=== PATIENT | female | born 1995 | race Caucasian/White ===

== ENCOUNTER → 2019-06-01 10:36 | Outpatient (CLI) | payer OTHER, SELFPAY ==
--- NOTE | ~2019-06-01 | CT_ITS ---
EXAMINATION: CT cervical spine wo con DATE: 06/01/2019 11:09 INDICATION: Neck pain. TECHNIQUE: Computed tomography (CT) of the cervical spine was performed without intravenous contrast. Automated exposure control and iterative reconstruction technique were employed. The dose-length pro duct was 267.93 mGy-cm. COMPARISON: Cervical spine CT 01/06/2016 FINDINGS: There is kyphosis of cervical spine. Vertebral body heights are normal. There is mildly dec reased disc height at C6-C7. The following disc levels are specifically discussed: C2-C3: There is no uncovertebral joint osteoarthritis. There is mild bilateral facet joint osteoarthr itis. There is no neural foraminal stenosis. There is no central canal stenosis. C3-C4: There is no uncovertebral joint osteoarthritis. There is mild bilateral facet joint osteoarthr itis. There is no neural foraminal stenosis. There is no central canal stenosis. C4-C5: There is no uncovertebral joint osteoarthritis. There is mild left facet joint osteoarthritis. There is no neural foraminal stenosis. There is no central canal stenosis. C5-C6: There is moderate right and mild left uncovertebral joint osteoarthritis. There is no facet wyatt int osteoarthritis. There is no neural foraminal stenosis. There is no central canal stenosis. C6-C7: There is no uncovertebral joint osteoarthritis. There is no facet joint osteoarthritis. There is no neural foraminal stenosis. There is no central canal stenosis. C7-T1: There is no uncovertebral joint osteoarthritis. There is moderate bilateral facet joint osteoa rthritis. There is no neural foraminal stenosis. There is no central canal stenosis. IMPRESSION: 1. Mild cervical spondylosis, stable from 01/06/2016. Reviewed, dictated and finalized at location A.
== END ==
PROVIDERS: PCP Family Medicine; Visit Provider Nurse Practitioner Family
DX: M47.892 Other spondylosis, cervical region (principal)
CPT/HCPCS: 72125

== ENCOUNTER 2022-12-27 15:18 | Outpatient (CLI) | payer OTHER, SELFPAY ==
--- NOTE | ~2022-12-27 | XR_ITS ---
EXAM: XR ankle RT min 3V DATE: 12/27/2022 15:36 HISTORY: LAT PAIN FOR OVER 1 MON . COMPARISON: 09/27/2018. FINDINGS: Normal mineralization. No fracture or dislocation. No lytic or blastic lesion. Os cuboidiu m. Prominent os trigonum. Minimal Achilles enthesopathy. Joint spaces are maintained. No erosion or p eriosteal change. Soft tissues within normal limits. IMPRESSION: No acute osseous finding in the right ankle. Prominent os trigonum, which can be a source of chronic posterior ankle pain in some patients. Reviewed, dictated and finalized at location K. [employer]
== END 2022-12-27 15:19 | disposition home or self-care (01) ==
LOC: ANHIMG 15:24
PROVIDERS: PCP Hospitalist; Visit Provider Hospitalist
DX: M25.571 Pain in right ankle and joints of right foot (principal)
CPT/HCPCS: 73610

== ENCOUNTER 2023-05-25 14:00 | Outpatient (RCR) | payer OTHER, SELFPAY ==
--- NOTE | 2023-02-25 14:33 | PTOPEVAL1 ---
Assessment and note entered by Ivan Ni, PT Evaluation Information Assessment Status Evaluation Diagnosis Right ankle pain, ankle instability Onset August 2022 Subjective Information Reports that she had knee surgery 1 year ago following lateral release and chondroplasty. She had chronic instability of the patella and needed surgery to correct following rehab. She recently tripped causing her to roll her ankle here recently. She was booted for one month following her sprain. Pain is increased when being on her feet for too long or with a lot of activity. She reports that's he has very flat feet and does not wear insoles. Reported Pain Level Pain Score 3: Self Report Assessment PT Clinical Summary Patient presents with normative ROM of deandre ankles and instability noted primarily in R ankle at this time. She will benefit from skilled therapy to address these deficits for gross ankle stabilization and transition to proprioceptive training to promote full function pain free. Plan of Care Interventions Electrical Stimulation,Hot Pack/Cold Pack, Intermittent Compression,Manual Therapy,Neuro Re- education,Therapeutic Activities,Therapeutic Exercise PT Services Indicated Yes Treatment Frequency and 2x/week for 8 visits Duration These treatments will address the objective and functional deficits as defined above. The patient will be advanced safely and appropriately in order for the patient to progress towards his/her prior level of function. Additional exercises will be introduced and as well as a comprehensive home exercise program upon discharge, if needed, ?to ensure carryover of functional gains achieved in the clinic. This treatment plan has been reviewed and agreement upon by the patient.
--- NOTE | 2023-02-25 14:34 | OPREHPOC ---
Outpatient Therapy Plan of Care This is a Multidisciplinary Plan of Care that may contain components documented by all disciplines (PT, OT, and ST.) PT Problem 1 PT Problem #1 Knowledge Deficit PT Goal 1 Goal Independent with HEP Target Visit 4 PT Problem 2 PT Problem #2 Pain PT Goal 1 Goal Report no pain with walking distances greater than 100 feet Target Visit 8 PT Problem 3 PT Problem #3 Impaired Strength PT Goal 1 Goal Improve gross R ankle strength to 5/5 to improve stability with walking and ADLs Target Visit 8 PT Problem 4 PT Problem #4 Impaired Gait PT Goal 1 Goal Ambulate with even stride length bilaterally Target Visit 8
--- NOTE | 2023-03-18 16:52 | PCPTNOTE ---
Patient no show no called to appointment.
--- NOTE | 2023-03-29 16:41 | PTOPPROG ---
Assessment and note entered by Ivan Ni, PT Evaluation Information Assessment Status Progress Diagnosis Right ankle pain, ankle instability Onset August 2022 Subjective Information Reports that she has returned to walking and is using a brace when doing so. Reports that she is not wearing a brace if she is going to be on even smooth surfaces. She is more so concerned with uneven surfaces. Pain has been controlled for the most part. It has been a little more sore lately but she has been a lot more active. Assessment PT Clinical Summary Patient has seen some progress with ankle stability. Majority of her symptoms are with dynamic activity making it difficult to reflect objective findings with manual muscle testing. She is reporting greater levels of activity than with last evaluation indicating that she is likely seeing functional improvement overall. Will continue to benefit6 from skilled therapy to address these deficits moving forward. Plan of Care Interventions Electrical Stimulation,Hot Pack/Cold Pack, Intermittent Compression,Manual Therapy,Neuro Re- education,Therapeutic Activities,Therapeutic Exercise PT Services Indicated Yes Treatment Frequency and 2x/week for 8 visits Duration These treatments will address the objective and functional deficits as defined above. The patient will be advanced safely and appropriately in order for the patient to progress towards his/her prior level of function. Additional exercises will be introduced and as well as a comprehensive home exercise program upon discharge, if needed, ?to ensure carryover of functional gains achieved in the clinic. This treatment plan has been reviewed and agreement upon by the patient.
--- NOTE | 2023-03-29 16:41 | OPREHPOC ---
Outpatient Therapy Plan of Care This is a Multidisciplinary Plan of Care that may contain components documented by all disciplines (PT, OT, and ST.) PT Problem 1 PT Problem #1 Knowledge Deficit PT Goal 1 Goal Independent with HEP Target Visit 4 Progress Met PT Problem 2 PT Problem #2 Pain PT Goal 1 Goal Report no pain with walking distances greater than 100 feet Target Visit 12 Progress Partially Met PT Problem 3 PT Problem #3 Impaired Strength PT Goal 1 Goal Improve gross R ankle strength to 5/5 to improve stability with walking and ADLs Target Visit 12 Progress Partially Met PT Problem 4 PT Problem #4 Impaired Gait PT Goal 1 Goal Ambulate with even stride length bilaterally Target Visit 12 Progress Partially Met
--- NOTE | 2023-04-26 15:52 | PTOPPROG ---
Assessment and note entered by Ivan Ni, PT Evaluation Information Assessment Status Progress Diagnosis Right ankle pain, ankle instability Onset August 2022 Subjective Information Reports that progress has been slow but she feels that therapy has been helping and would like to continue. She still has increased pain and swelling with increased time on her feet. Motion feels better but is decreased with swelling. She has been working more on her home exercise to improve ankle stability. Assessment PT Clinical Summary Patient therapy has centered around ankle dynamic stability. She still has some stability issues from prior knee issues including lateral hip proprioception and lateral ankle weakness affecting stability with uneven surfaces and dynamic activity. Will benefit from continuation of therapy to help correct these issues for longterm progress and injury prevention. Plan of Care Interventions Electrical Stimulation,Hot Pack/Cold Pack, Intermittent Compression,Manual Therapy,Neuro Re- education,Therapeutic Activities,Therapeutic Exercise PT Services Indicated Yes Treatment Frequency and 2x/week for 8 visits Duration These treatments will address the objective and functional deficits as defined above. The patient will be advanced safely and appropriately in order for the patient to progress towards his/her prior level of function. Additional exercises will be introduced and as well as a comprehensive home exercise program upon discharge, if needed, ?to ensure carryover of functional gains achieved in the clinic. This treatment plan has been reviewed and agreement upon by the patient.
--- NOTE | 2023-04-26 15:53 | OPREHPOC ---
Outpatient Therapy Plan of Care This is a Multidisciplinary Plan of Care that may contain components documented by all disciplines (PT, OT, and ST.) PT Problem 1 PT Problem #1 Knowledge Deficit PT Goal 1 Goal Independent with HEP Target Visit 4 Progress Met PT Problem 2 PT Problem #2 Pain PT Goal 1 Goal Report no pain with walking distances greater than 100 feet Target Visit 20 Progress Partially Met PT Problem 3 PT Problem #3 Impaired Strength PT Goal 1 Goal Improve gross R ankle strength to 5/5 to improve stability with walking and ADLs Target Visit 20 Progress Partially Met PT Problem 4 PT Problem #4 Impaired Gait PT Goal 1 Goal Ambulate with even stride length bilaterally Target Visit 20 Progress Partially Met PT Goal 2 Goal Demonstrate ability to maintain single leg stance on uneven surface for 30s to improve dynamic ankle stability with walking and ADLs Target Visit 20
--- NOTE | 2023-05-12 13:57 | PCPTNOTE ---
Patient did not show up for scheduled appointment this date. Called and attempted to leave voicemail but mailbox was full.
== END 2023-05-25 15:12 | disposition still patient (30) ==
LOC: ANHGOSHPT 14:00
PROVIDERS: PCP Hospitalist
DX: M25.571 Pain in right ankle and joints of right foot (principal)
CPT/HCPCS: 97016; 97110; 97112; 97140; 97161; 97530; 99199

== ENCOUNTER 2023-08-05 13:45 | Outpatient (RCR) | payer OTHER, SELFPAY ==
--- NOTE | 2023-06-02 08:25 | PCPTNOTE ---
Patient unable to been seen for treatment May 31 due to therapist out for illness.
--- NOTE | 2023-06-10 12:21 | PCPTNOTE ---
Patient episode of care carried forward from #[id number]
--- NOTE | 2023-06-10 12:22 | PTOPPROG ---
Assessment and note entered by Ivan Ni, PT Evaluation Information Assessment Status Progress Diagnosis Right ankle pain, ankle instability Onset August 2022 Subjective Information Patient reports that overall she is doing better. She feels a lot stronger but still has pain in the foot. Cesar not feel that she is fully pain free. She does not fully trust her ankle on uneven surfaces. She has been doing a lot more walking outside which affects that. She will still occasionally have pain at night anuradha sleeping on her right side attributes it to pressure against the ankle. She is still having some trouble going up and down stairs when carrying laundry. Patient reports that discussion with MD indicates that and MRI may be warranted if subjective symptoms continue absent of severe objective deficits. Feels that pain always floats around a 1-3. Assessment PT Clinical Summary Patient overall showing objective improvement. She continues to report pain as a primary indicator of continuation. We discussed possibility of continuity of therapy and possibility moving forward with imaging if pain is not significantly controlled with current functional objective state . Plan of Care PT Services Indicated Yes Treatment Frequency and 1-2x/week for 6 visits Duration These treatments will address the objective and functional deficits as defined above. The patient will be advanced safely and appropriately in order for the patient to progress towards his/her prior level of function. Additional exercises will be introduced and as well as a comprehensive home exercise program upon discharge, if needed, ?to ensure carryover of functional gains achieved in the clinic. This treatment plan has been reviewed and agreement upon by the patient.
--- NOTE | 2023-07-22 10:27 | PCPTNOTE ---
Patient cancelled today's progress visit due to illness.
--- NOTE | 2023-08-05 15:06 | PTOPDC ---
Assessment and note entered by Ivan Ni, PT Evaluation Information Assessment Status Discharge Diagnosis Right ankle pain, ankle instability Onset August 2022 Subjective Information Patient reports that overall she is doing better. She feels a lot stronger but still has pain in the foot. Cesar not feel that she is fully pain free. She does not fully trust her ankle on uneven surfaces. She has been doing a lot more walking outside which affects that. She will still occasionally have pain at night anuradha sleeping on her right side attributes it to pressure against the ankle. She is still having some trouble going up and down stairs when carrying laundry. Patient reports that discussion with MD indicates that and MRI may be warranted if subjective symptoms continue absent of severe objective deficits. Feels that pain always floats around a 1-3. Reported Pain Level Pain Score 1: Self Report Assessment PT Clinical Summary Patient is currently showing little to no objective deficits at this time limiting activity. We spoke at length about anatomical findings of ankle and correlation with no objective deficits. Discussed possible orthopedic consultation for further imaging and potential surgery. Plan of Care PT Services Indicated D/C to HEP
== END 2023-08-05 16:22 | disposition home or self-care (01) ==
LOC: ANHGOSHPT 13:45
PROVIDERS: PCP Hospitalist
DX: M25.571 Pain in right ankle and joints of right foot (principal)
CPT/HCPCS: 97016; 97110; 97112; 97530; 99199

== ENCOUNTER 2023-11-29 17:54 | Emergency (ER) | payer OTHER, SELFPAY ==
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
[2023-11-29 17:58] VITALS: BP 134/81; PULSE 88; RESP 16; TEMP 36.6; O2SAT 99
[2023-11-29] MEDS: ACETAMINOPHEN 500 MG TABLET 1000 MG PO (20:28)
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
[2023-11-29 21:05] LABS: BEDSIDEPREGUCG Negative (Negative)
[2023-11-29] MEDS: oxyCODONE HCL (*CRX) 5 MG TAB IR PO (23:22)
[2023-11-29 23:35] VITALS: BP 141/79; PULSE 87; RESP 14; O2SAT 100
== END 2023-11-29 23:36 | disposition home or self-care (01) ==
PROVIDERS: Emergency Provider Physician Assistant; PCP Hospitalist
DX: S22.088A Other fracture of T11-T12 vertebra, initial encounter for closed fracture (principal); J45.909 Unspecified asthma, uncomplicated; K58.9 Irritable bowel syndrome, unspecified; E28.2 Polycystic ovarian syndrome; F41.1 Generalized anxiety disorder; Z79.84 Long term (current) use of oral hypoglycemic drugs; Z79.899 Other long term (current) drug therapy; V43.62XA Car passenger injured in collision with other type car in traffic accident, initial encounter
CPT/HCPCS: 70450; 72125; 72128; 72131; 81025; 99284; A9270